=== PATIENT | female | born 1965 | race Caucasian/White ===

== ENCOUNTER 2020-03-19 16:59 | Emergency (ER) | payer MEDICARE, MEDICAID, SELFPAY ==
--- NOTE | ~2020-03-19 | XR_ITS ---
EXAMINATION: XR wrist LT min 3V DATE: 03/19/2020 17:30 INDICATION: Left wrist pain after fall, prior fracture TECHNIQUE: Posteroanterior, oblique, and lateral views of the left wrist were obtained. COMPARISON: None available FINDINGS: Osseous detail is obscured by cast material. There is a comminuted fracture of the distal r adius in near-anatomic alignment. An ulnar styloid avulsion is present. No definite new fracture is i dentified. The bones are osteopenic which limits sensitivity for fracture. IMPRESSION: 1. Casted fractures of the distal radius and ulnar styloid without definite evidence of new fracture. Reviewed, dictated and finalized at location A. IMPRESSION: 1. Casted fractures of the distal radius and ulnar styloid without definite desi dence of new fracture.
--- NOTE | ~2020-03-19 | XR_ITS ---
EXAMINATION: XR hand LT min 3V DATE: 03/19/2020 18:25 INDICATION: Left hand pain post fall TECHNIQUE: Posteroanterior, oblique and lateral views of the left hand were obtained. COMPARISON: Left wrist radiographs date at 5:30 PM FINDINGS: Casting material about the left hand, wrist and visualized forearm which obscures underlying fine bon e and soft tissue detail. Again seen is a healing nondisplaced metaphyseal fracture of the distal lef t radius with surrounding callus formation. Also unchanged is a minimally displaced ulnar styloid avu lsion fracture. No new fractures identified. Minimal to mild polyarticular osteoarthritis with typica l distribution most prominent at the radial aspect of the carpus. Diffuse osteopenia. IMPRESSION: 1. Casted fractures of the distal left radius and ulnar styloid process with callus formation around the healing radial fracture. 2. No acute osseous abnormality although sensitivity for nondisplaced fracture is decreased by osteop enia and casting material. Reviewed, dictated and finalized at location A. IMPRESSION: 1. Casted fractures of the distal left radius and ulnar styloid process with ca llus formation around the healing radial fracture. 2. No acute osseous abnormality although sensitivity for nondisplaced fracture is decreased by osteopenia and casting material.
[2020-03-19 17:04] VITALS: BP 143/85; PULSE 60; RESP 16; TEMP 36.6; O2SAT 98
--- NOTE | 2020-03-19 17:22 | ED.UPPEXIN ---
HPI - Extremity Injury (Upper) General Chief Complaint: Extremity Injury, Upper <VAIBHAV Rios Last Filed: 03/19/20 19:06> Stated Complaint: Broken Left Arm <VAIBHAV Rios Last Filed: 03/19/20 19:06> Time Seen by Provider: 03/19/20 17:09 <VAIBHAV Rios Last Filed: 03/19/20 19:06> Source: patient <VAIBHAV Rios Last Filed: 03/19/20 19:06> Mode of arrival: ambulatory <VAIBHAV Rios Last Filed: 03/19/20 19:06> Limitations: no limitations <VAIBHAV Rios Last Filed: 03/19/20 19:06> History of Present Illness HPI narrative: This is a 55 year old female that presents to the ER for left arm injury 4 days ago. Reports she had a wrist fracture of this arm in the end of December. Reports she has been in a cast since. Reports 4 days ago she tripped over her cat re-injuring the wrist. Reports increasing pain in the wrist. Reports she has an appointment to see an orthopedic doctor in 4 days at [facility]. Reports she has run out of pain medication. Denies fever, erythema, or numbness. <VAIBHAV Rios Last Filed: 03/19/20 19:06> Related Data Allergies/Adverse Reactions: Allergies Allergy/AdvReac Type Severity Reaction Status Date / Time iohexol Allergy Anaphylaxis Verified 03/19/20 17:36 [From contrast - CT, X-RAY] shellfish derived Allergy Itching Verified 03/19/20 17:36 <VAIBHAV Rios Last Filed: 03/19/20 19:06> Review of Systems Review of Systems: Narrative: CONSTITUTIONAL: Denies fever MUSCULOSKELETAL: Reports joint pain, and myalgia. NEUROLOGIC: Denies numbness <VAIBHAV Rios Last Filed: 03/19/20 19:06> All systems reviewed & are unremarkable except as noted in HPI and below <VAIBHAV Rios Last Filed: 03/19/20 19:06> [facility] Past Medical History Medical History: Medical History (Updated 03/19/20 @ 19:05 by Pooja Ferrell PA-C) History of hypertension <Pooja Ferrell PA-C - Last Filed: 03/19/20 19:06> Social History Social History: Social History (Updated 03/19/20 @ 17:30 by Pooja Ferrell PA-C) Smoking status: Current every day smoker <Pooja Ferrell PA-C - Last Filed: 03/19/20 19:06> Exam Narrative: Exam Narrative: GENERAL: Well-appearing, well-nourished, and in no acute distress. HEAD: Normocephalic, atraumatic. EYES: EOMI. EXTREMITIES: Left wrist with cast in place. No edema or erythema of the fingers of the left hand. Normal sensation. Normal capillary refill SKIN: Warm, dry, no rash. NEURO: No focal deficits. Alert and oriented x3. PSYCH: Normal mood and affect <Pooja Ferrell PA-C - Last Filed: 03/19/20 19:06> Course Vital Signs Vital signs: Vital Signs Temperature 36.6 C 03/19/20 17:04 Pulse Rate 60 03/19/20 17:04 Respiratory Rate 16 03/19/20 17:04 Blood Pressure 143/85 H 03/19/20 17:04 Pulse Oximetry 98 03/19/20 17:04 Temperature 36.6 C 03/19/20 17:04 Pulse Rate 78 03/19/20 19:13 Respiratory Rate 16 03/19/20 19:13 Blood Pressure 138/75 03/19/20 19:13 Pulse Oximetry 100 03/19/20 19:13 <Pooja Ferrell PA-C - Last Filed: 03/19/20 19:06> Vital Signs Temperature 36.6 C 03/19/20 17:04 Pulse Rate 60 03/19/20 17:04 Respiratory Rate 16 03/19/20 17:04 Blood Pressure 143/85 H 03/19/20 17:04 Pulse Oximetry 98 03/19/20 17:04 Temperature 36.6 C 03/19/20 17:04 Pulse Rate 78 03/19/20 19:13 Respiratory Rate 16 03/19/20 19:13 Blood Pressure 138/75 03/19/20 19:13 Pulse Oximetry 100 03/19/20 19:13 <Mireille Clinton MD - Last Filed: 03/19/20 19:58> MDM - Extremity Injury (Upper) MDM Narrative Medical decision making narrative: Patient presents to the emergency department for left wrist pain. Had a fracture in this area about 6 weeks ago and was casted by an orthopedic doctor in [place]. Recently moved here and has an appointment to see an orthopedic
[2020-03-19 19:13] VITALS: BP 138/75; PULSE 78; RESP 16; O2SAT 100
== END 2020-03-19 19:14 | disposition home or self-care (01) ==
PROVIDERS: Emergency Provider Emergency Medicine
DX: M25.532 Pain in left wrist (principal); S52.512D Displaced fracture of left radial styloid process, subsequent encounter for closed fracture with routine healing; S52.612D Displaced fracture of left ulna styloid process, subsequent encounter for closed fracture with routine healing; X58.XXXD Exposure to other specified factors, subsequent encounter; I10 Essential (primary) hypertension; F17.200 Nicotine dependence, unspecified, uncomplicated
CPT/HCPCS: 73110; 73130; 99283; A9270

== ENCOUNTER 2020-05-01 16:46 | Emergency (ER) | payer MEDICARE, MEDICAID, SELFPAY ==
--- NOTE | ~2020-05-01 | CT_ITS ---
EXAMINATION: CT lumbar spine wo con DATE: 05/01/2020 18:13 INDICATION: Low back pain after stepping off a porch and twisting her back. TECHNIQUE: Computed tomography (CT) of the lumbar spine was performed without intravenous contrast. A utomated exposure control and iterative reconstruction technique were employed. The dose-length produ ct was 347.14 mGy-cm. COMPARISON: None FINDINGS: Alignment is normal. Mild depression of the left anterior aspect of the superior endplate of L1 with subtle underlying linear sclerosis consistent with relatively recent mild compression fracture. Chron ic appearing minimal anterior wedging at T12 which may be physiologic. Disc heights are normal. There are disc bulges resulting in mild central canal stenosis at L2-L3 through L5-S1. Mild to moderate bi lateral facet osteoarthritis at L5-S1 with mild facet osteoarthritis in the more cephalad lumbar and lower thoracic spine. 1-2 mm nonobstructing stone at the upper pole of the right kidney. IMPRESSION: 1. Relatively acute appearing T12 compression fracture with mild depression of a portion of the super ior endplate. 2. Nonobstructing 1-2 mm right renal stone. Reviewed, dictated and finalized at location A. IMPRESSION: 1. Relatively acute appearing T12 compression fracture with mild depression of a portion of the superior endplate. 2. Nonobstructing 1-2 mm right renal stone.
--- NOTE | ~2020-05-01 | XR_ITS ---
EXAMINATION: XR hip BI 2V w AP pelvis DATE: 05/01/2020 18:31 INDICATION: Bilateral hip pain, right greater than left. TECHNIQUE: Anteroposterior view of the pelvis and anteroposterior and frog-leg lateral views of the l eft hip and anteroposterior and frog-leg lateral views of the right hip and were obtained. COMPARISON: None. FINDINGS: Alignment is normal. No fracture or suspected avascular necrosis. Bilateral hip and sacroiliac joint spaces are normal. Surgical clips project over the right abdomen. Likely pain management device proje cting over the right pelvis with leads extending cephalad towards the thoracic spine. Large phlebolit h versus heterotopic ossicle projects over the central pelvis. IMPRESSION: 1. No acute osseous abnormality. Reviewed, dictated and finalized at location A.
[2020-05-01 16:57] VITALS: BP 144/83; PULSE 66; RESP 16; TEMP 36.8; O2SAT 98
[2020-05-01 17:38] LABS: Add Urine Microscopic? YES; Appearance Urine Clear (Clear); Bacteria Urine Trace /hpf; Bilirubin Urine Negative (Negative); Blood Urine 1+ (Negative); Color Urine Straw (Yellow); Glucose Urine UA Negative (Negative); Ketones Urine Negative (Negative); Leukocyte Esterase Ur 2+ LEU/UL (Negative); Mucus Urine Rare /lpf; Nitrate Urine Negative (Negative); Protein Urine Negative (Negative); RBC Urine 0-2 /hpf (0-2); Specific Grav Ur 1.009 (1.001-1.035); Squamous Epithelial Cell Urine Few /hpf (Few); Urobilinogen Urine Negative mg/dL (<2.0)
--- NOTE | 2020-05-01 17:40 | ED.BACK ---
HPI - Back Pain/Injury General Chief Complaint: Back Pain/Injury Stated Complaint: Back Injury Time Seen by Provider: 05/01/20 17:14 Source: patient Mode of arrival: ambulatory Limitations: no limitations History of Present Illness HPI Narrative: This is a 55-year-old female that presents the emergency department for low back pain after an injury 4 days ago. Reports she was stepping down off of her porch and her back twisted. Reports since she has had bilateral low back pain. She has been taking ibuprofen with little relief. Denies fever, numbness, saddle anesthesia or bowel incontinence. Related Data Allergies Allergy/AdvReac Type Severity Reaction Status Date / Time iohexol Allergy Anaphylaxis Verified 05/01/20 17:00 [From contrast - CT, X-RAY] shellfish derived Allergy Itching Verified 05/01/20 17:00 Review of Systems Review of Systems: Narrative: CONSTITUTIONAL: Denies fever GENITOURINARY: Denies dysuria or hematuria. SKIN: Denies rash MUSCULOSKELETAL: Reports back pain, joint pain, and myalgia. NEUROLOGIC: Denies numbness, or weakness. All systems reviewed & are unremarkable except as noted in HPI and below PMFSH Past Medical History Medical History (Updated 05/01/20 @ 19:33 by Pooja Ferrell PA-C) History of fibromyalgia History of gastroesophageal reflux (GERD) History of hypertension Social History Social History (Updated 03/19/20 @ 17:30 by Pooja Ferrell PA-C) Smoking status: Current every day smoker Exam Narrative: Exam Narrative: GENERAL: Well-appearing, well-nourished, and in no acute distress. HEAD: Normocephalic, atraumatic. EYES: EOMI. CHEST: Clear to auscultation. No respiratory distress. No wheezes rales or rhonchi HEART: Regular rate and rhythm. No murmur heard. Normal peripheral pulses. BACK: No midline spinal tenderness EXTREMITIES: Normal range of motion. No edema. Strength equal in bilateral lower extremities (5/5). Normal patellar reflexes bilaterally SKIN: Warm, dry, no rash. NEURO: No focal deficits. Alert and oriented x3. PSYCH: Normal mood and affect Course Vital Signs Vital signs: Vital Signs Temperature 98.3 F 05/01/20 16:57 Pulse Rate 66 05/01/20 16:57 Respiratory Rate 16 05/01/20 16:57 Blood Pressure 144/83 H 05/01/20 16:57 Pulse Oximetry 98 05/01/20 16:57 Temperature 98.3 F 05/01/20 16:57 Pulse Rate 66 05/01/20 16:57 Respiratory Rate 16 05/01/20 16:57 Blood Pressure 144/83 H 05/01/20 16:57 Pulse Oximetry 98 05/01/20 16:57 MDM - Back Pain/Injury MDM Narrative Medical decision making narrative: Patient presents to the emergency department for low back pain after a possible injury a couple of days ago. She is neurologically intact. Hip/pelvis x-rays without acute findings. CT scan lumbar spine shows relatively acute appearing L1 compression fracture with mild depression of a portion of the superior endplate. Patient updated on case findings. She will be given [facility] pain management for follow-up. Patient is stable and felt appropriate for further outpatient evaluation. She was given warnings to return to the ER Lab Data Labs: Lab Results 05/01/20 Range/Units 17:04 Urine Color Straw (Yellow) Urine Appearance Clear (Clear) Urine pH 6.0 (5.0-9.0) Ur Specific [place] 1.009 (1.001-1.035) Urine Protein Negative (Negative) mg/dL Urine Glucose (UA) Negative (Negative) mg/dL Urine Ketones Negative (Negative) mg/dL Ur Blood (Man) 1+ H (Negative) Urine Nitrate Negative (Negative) Urine Bilirubin Negative (Negative) Urine Urobilinogen Negative (<2.0) mg/dL Leukocyte Esterase Rfl 2+ H (Negative) JAVI/UL Urine RBC 0-2 (0-2) /hpf Urine WBC 10-15 H /hpf Ur Squamous Epith Cells Few (Few) /hpf Urine Bacteria Trace /hpf Urine Mucus Rare /lpf Imaging Data Radiologist's impression: ITS Impressions Lumbar Spine CT 05/01/20 18:26 IMPRESSION: 1. Relatively acu
[2020-05-01] MEDS: diazePAM INJ (*CRX) 10 MG/2 ML SYRINGE 5 MG IM (17:58)
[2020-05-01] MEDS: ACETAMINOPHEN 500 MG TABLET 1000 MG PO (17:58)
--- NOTE | 2020-05-01 18:07 | PC.NURSE ---
PT TO RADIOLOGY AT THIS TIME IN W/C.
[2020-05-01] MEDS: HYDROcodone/acetaminophen (*CRX) 5-325 MG TABLET 1 TAB PO (18:50)
[2020-05-01 19:46] VITALS: BP 138/75; PULSE 86; RESP 16; O2SAT 100
== END 2020-05-01 19:47 | disposition home or self-care (01) ==
PROVIDERS: Emergency Provider Emergency Medicine
DX: S32.010A Wedge compression fracture of first lumbar vertebra, initial encounter for closed fracture (principal); M79.7 Fibromyalgia; K21.9 Gastro-esophageal reflux disease without esophagitis; I10 Essential (primary) hypertension; F17.200 Nicotine dependence, unspecified, uncomplicated; N20.0 Calculus of kidney; X50.9XXA Other and unspecified overexertion or strenuous movements or postures, initial encounter
CPT/HCPCS: 72131; 73521; 81001; 87086; 87088; 96372; 99284; A9270; J3360

== ENCOUNTER 2020-05-02 13:13 | Emergency (ER) | payer MEDICARE, MEDICAID, SELFPAY ==
[2020-05-02 13:15] VITALS: BP 155/77; PULSE 61; RESP 18; TEMP 36.5; O2SAT 100
--- NOTE | 2020-05-02 13:49 | ED.BACK ---
HPI - Back Pain/Injury General Chief Complaint: Back Pain/Injury Stated Complaint: Back Pain, Seen Last Night Time Seen by Provider: 05/02/20 13:24 Source: patient Mode of arrival: ambulatory Limitations: no limitations History of Present Illness HPI Narrative: Patient is a 55-year-old female who presents to emergency department for evaluation of low back pain diagnosed with compression fracture after miss stepping last night in the emergency department patient was placed on hydrocodone and ibuprofen and is noting that the ibuprofen and the narcotic are upsetting her stomach and causing her to feel slightly dizzy patient also notes increasing pain to the lower back. Patient has follow-up with pain management early next week. Patient denies other injuries or complaints and is otherwise in no distress and does not appear uncomfortable on arrival Related Data Allergies Allergy/AdvReac Type Severity Reaction Status Date / Time iohexol Allergy Anaphylaxis Verified 05/02/20 13:15 [From contrast - CT, X-RAY] shellfish derived Allergy Itching Verified 05/02/20 13:15 Review of Systems Review of Systems: All systems reviewed & are unremarkable except as noted in HPI and below PMFSH Past Medical History Medical History History of fibromyalgia History of gastroesophageal reflux (GERD) History of hypertension Social History Social History Smoking status: Current every day smoker Gender identity (if verbalized by the patient): Female Exam Narrative: Exam Narrative: GENERAL: Well-appearing, well-nourished, and in no acute distress. HEAD: Normocephalic, atraumatic. EYES: PERRLA and EOMI. ENT: Nares clear, no rhinorrhea or epistaxis. Mucous membranes moist. CHEST: Clear to auscultation. No respiratory distress. No wheezes rales or rhonchi HEART: Regular rate and rhythm. No murmur heard. Normal peripheral pulses. ABDOMEN: Soft, nontender, nondistended EXTREMITIES: Normal range of motion. No edema. Midline lumbar tenderness SKIN: Warm, dry, no rash. NEURO: No focal deficits. Alert and oriented x3. Cranial nerves II through XII grossly intact PSYCH: Normal mood and affect. Course Course Emergency Course: Patient in the room in no distress does not appear uncomfortable will have her medications changed advised to continue her follow-up with pain management Vital Signs Vital signs: Vital Signs Temperature 97.7 F 05/02/20 13:15 Pulse Rate 61 05/02/20 13:15 Respiratory Rate 18 05/02/20 13:15 Blood Pressure 155/77 H 05/02/20 13:15 Pulse Oximetry 100 05/02/20 13:15 Temperature 97.7 F 05/02/20 13:15 Pulse Rate 61 05/02/20 13:15 Respiratory Rate 18 05/02/20 13:15 Blood Pressure 155/77 H 05/02/20 13:15 Pulse Oximetry 100 05/02/20 13:15 MDM - Back Pain/Injury MDM Narrative Medical decision making narrative: Patients pain is positional in nature and localized to back without signs of cord compression or cauda equina based on neurological exam, skeletal exam and history. No fever or other significant factors to suggest osteomyelitis or spinal epidural abscess. No symptoms or signs to suggest pain is referred from abdominal or / cardiopulmonary sources. No pulsatile masses noted on exam. Patient ambulates with steady gait and is stable for outpatient management given case findings. Discharge Plan Discharge Clinical Impression: Closed compression fracture of lumbosacral spine Patient Disposition: Home, Self-Care Condition: Stable Instructions: Antibiotic Form, Vertebral Compression Fracture (ED) Additional Instructions: Medications as needed and prescribed. Limit lifting and bending. You may apply heat or cold to the area as needed. Follow up with your doctor for further care as planned. contact your doctor or return to the emergency department if you develop
[2020-05-02] MEDS: FAMOTIDINE 20 MG TABLET PO (13:56)
--- NOTE | 2020-05-02 14:01 | PC.NURSE ---
Pt refused Tylenol pills for pain. Informed BRINA Cheney of this.
[2020-05-02] MEDS: LIDOCAINE 5% PATCH 1 PATCH TRANSDERM (14:25)
== END 2020-05-02 15:10 | disposition home or self-care (01) ==
PROVIDERS: Emergency Provider Emergency Medicine
DX: S32.008D Other fracture of unspecified lumbar vertebra, subsequent encounter for fracture with routine healing (principal); M79.7 Fibromyalgia; K21.9 Gastro-esophageal reflux disease without esophagitis; I10 Essential (primary) hypertension; F17.200 Nicotine dependence, unspecified, uncomplicated; W10.1XXD Fall (on)(from) sidewalk curb, subsequent encounter
CPT/HCPCS: 99283; A9270

== ENCOUNTER 2020-05-06 11:10 | Emergency (ER) | payer MEDICARE, MEDICAID, SELFPAY ==
[2020-05-06 11:19] VITALS: BP 143/94; PULSE 65; RESP 18; TEMP 36.3; O2SAT 100
[2020-05-06 11:24] VITALS: BP 143/94; PULSE 65; RESP 18; TEMP 36.3; O2SAT 100
--- NOTE | 2020-05-06 12:04 | ED.BACK ---
HPI - Back Pain/Injury General Chief Complaint: Unspecified <VAIBHAV Blake Last Filed: 05/06/20 13:04> Stated Complaint: REQUESTING PAIN MEDICATION <VAIBHAV Blake Last Filed: 05/06/20 13:04> Time Seen by Provider: 05/06/20 11:16 <VAIBHAV Blake Last Filed: 05/06/20 13:04> Source: patient <VAIBHAV Blake Last Filed: 05/06/20 13:04> Mode of arrival: ambulatory <VAIBHAV Blake Last Filed: 05/06/20 13:04> Limitations: no limitations <VAIBHAV Blake Last Filed: 05/06/20 13:04> History of Present Illness HPI Narrative: Patient is a 55-year-old female who presents to emergency department for evaluation of continued pain secondary to compression fracture of the lumbar spine diagnosed over a week ago patient went to pain management clinic today and was evaluated and presents to emergency department for continued pain noting she is out of her medications that she has been taking for pain has not follow with primary care denies new injury or trauma denies illness or other complaints and is otherwise in no distress upon arrival does not appear uncomfortable. <VAIBHAV Blake Last Filed: 05/06/20 13:04> Related Data Home Medications: Home Medications Medication Instructions Recorded Confirmed albuterol sulfate INHALATION 05/06/20 amlodipine 05/06/20 gabapentin 05/06/20 hydroxyzine HCl 05/06/20 lisinopril 05/06/20 propranolol 05/06/20 tiotropium bromide [Spiriva with INHALATION 05/06/20 HandiHaler] trazodone 05/06/20 <VAIBHAV Blake Last Filed: 05/06/20 13:04> Allergies/Adverse Reactions: Allergies Allergy/AdvReac Type Severity Reaction Status Date / Time iohexol Allergy Anaphylaxis Verified 05/06/20 11:29 [From contrast - CT, X-RAY] shellfish derived Allergy Itching Verified 05/06/20 11:29 <VAIBHAV Blake Last Filed: 05/06/20 13:04> Review of Systems Review of Systems: All systems reviewed & are unremarkable except as noted in HPI and below <Amado Cheney PA-C - Last Filed: 05/06/20 13:04> [facility] Social History Social History: Social History Smoking status: Current every day smoker Gender identity (if verbalized by the patient): Female Sexual Orientation (if Verbalized by the Patient): Straight or Heterosexual <Amado Cheney PA-C - Last Filed: 05/06/20 13:04> Exam Narrative: Exam Narrative: GENERAL: Well-appearing, well-nourished, and in no acute distress. HEAD: Normocephalic, atraumatic. EYES: PERRLA and EOMI. ENT: Nares clear, no rhinorrhea or epistaxis. Mucous membranes moist. Oropharynx without tonsillar hypertrophy exudate or other lesions. NECK: Supple. No adenopathy or masses. CHEST: Clear to auscultation. No respiratory distress. No wheezes rales or rhonchi HEART: Regular rate and rhythm. No murmur heard. EXTREMITIES: Normal range of motion. No edema. Lumbar tenderness no deformity noted SKIN: Warm, dry, no rash. NEURO: No focal deficits. Alert and oriented x3. Motor and sensory intact and symmetrical in the extremities. Cranial nerves II through XII grossly intact PSYCH: Normal mood and affect. <VAIBHAV Blake Last Filed: 05/06/20 13:04> Course Course Emergency Course: Patient in the room in no distress will be medicated and sent home <VAIBHAV Blake Last Filed: 05/06/20 13:04> Vital Signs Vital signs: Vital Signs Temperature 36.3 C L 05/06/20 11:19 Pulse Rate 65 05/06/20 11:19 Respiratory Rate 18 05/06/20 11:19 Blood Pressure 143/94 H 05/06/20 11:19 Pulse Oximetry 100 05/06/20 11:19 Temperature 36.3 C L 05/06/20 11:24 Pulse Rate 66 05/06/20 13:24 Respiratory Rate 18 05/06/20 13:24 Blood Pressure 139/50 L 05/06/20 13:24 Pulse Oximetry 91 05/06/20 13:24 <VAIBHAV Blake
[2020-05-06] MEDS: LIDOCAINE 5% PATCH 1 PATCH TRANSDERM (12:12)
[2020-05-06] MEDS: KETOROLAC 15 MG/ML VIAL (*BKC) IM (12:28)
[2020-05-06 12:38] LABS: Add Urine Microscopic? YES; Appearance Urine Clear (Clear); Bacteria Urine Trace /hpf; Bilirubin Urine Negative (Negative); Blood Urine 2+ (Negative); Color Urine Yellow (Yellow); Glucose Urine UA Negative (Negative); Ketones Urine Negative (Negative); Leukocyte Esterase Ur 3+ LEU/UL (Negative); Nitrate Urine Negative (Negative); Protein Urine Negative (Negative); Specific Grav Ur 1.012 (1.001-1.035); Squamous Epithelial Cell Urine Few /hpf (Few); Urobilinogen Urine Negative mg/dL (<2.0); WBC Urine 31-50 /hpf
--- NOTE | 2020-05-06 13:23 | PC.NURSE ---
abdominal binder applied per erp ashlee orders. ERP notified and approved at this time.
[2020-05-06 13:24] VITALS: BP 139/50; PULSE 66; RESP 18; O2SAT 91
== END 2020-05-06 13:26 | disposition home or self-care (01) ==
PROVIDERS: Emergency Medicine Emergency Medical Services; Emergency Provider Emergency Medicine
DX: N39.0 Urinary tract infection, site not specified (principal); M54.5 Low back pain; F17.210 Nicotine dependence, cigarettes, uncomplicated
CPT/HCPCS: 81001; 87086; 96372; 99283; A9270; J1885

== ENCOUNTER 2020-05-22 11:26 | Emergency (ER) | payer MEDICARE, MEDICAID, SELFPAY ==
--- NOTE | ~2020-05-22 | CT_ITS ---
EXAMINATION: CT cervical spine wo con DATE: 05/22/2020 11:59 INDICATION: Neck pain TECHNIQUE: Computed tomography (CT) of the cervical spine was performed without intravenous contrast. Automated exposure control and iterative reconstruction technique were employed. The dose-length pro duct was 259.33 mGy-cm. COMPARISON: None FINDINGS: Draining of the normal cervical lordosis. Vertebral body heights are normal. Mild disc height loss at C6-C7 and minimal disc height loss at C3-C4 and C4-C5. Minimal to mild uncovertebral osteoarthritis at each of these levels. There is also multilevel mild bilateral facet osteoarthritis throughout the cervical spine. No significant central canal or neural foraminal stenosis. Small amount of atheroscle rotic calcification at the bilateral carotid bulbs. Cervical soft tissues are otherwise unremarkable. Small peripheral bleb at the right apex. IMPRESSION: 1. Minimal to mild cervical spondylosis. No acute osseous abnormality. Reviewed, dictated and finalized at location A.
--- NOTE | ~2020-05-22 | CT_ITS ---
EXAMINATION: CT abdomen pelvis wo con DATE: 05/22/2020 13:08 INDICATION: Back pain. Hematuria. TECHNIQUE: Computed tomography (CT) of the abdomen and pelvis was performed without intravenous contr ast. The dose-length product was 384.64 mGy-cm. Automated exposure control and iterative reconstructi on technique were employed. COMPARISON: None. FINDINGS: Dependent atelectasis. Heart size normal. No significant pleural or pericardial effusion. T here are spinal stimulator leads within the lower thoracic spine. There are surgical clips in the rig ht anterior abdominal wall. Status post cholecystectomy. The liver, spleen, pancreas, adrenal glands and left kidney are unremark able. There is a 2 mm nonobstructing right renal stone. No ureteral stones or hydronephrosis. Colonic diverticulosis without evidence for diverticulitis. No abnormal pelvic masses or fluid collections. Status post hysterectomy. Mild lumbar spondylosis. There is a mild superior endplate compression frac ture of L1 with increasing sclerosis compared with CT lumbar spine dated 05/01/2020.. IMPRESSION: 1. Nonobstructing right renal stone measuring 2 mm. 2: Mild L1 superior endplate compression fracture, likely acute/subacute, with increasing sclerosis c ompared with prior lumbar spine CT dated 05/01/2020. Reviewed, dictated and finalized at location B. IMPRESSION: 1. Nonobstructing right renal stone measuring 2 mm. 2: Mild L1 superior endplate compression fracture, likely acute/subacute, with increasing sclerosis compared with prior lumbar spine CT dated 05/01/2020.
[2020-05-22 11:35] VITALS: BP 139/88; PULSE 77; RESP 16; TEMP 37; O2SAT 100
--- NOTE | 2020-05-22 12:06 | ED.BACK ---
HPI - Back Pain/Injury General Chief Complaint: Back Pain/Injury Stated Complaint: back pain/muscle spasms Time Seen by Provider: 05/22/20 11:31 Source: patient Mode of arrival: ambulatory Limitations: no limitations History of Present Illness HPI Narrative: This is a 55 year old female that presents to the ER for low back pain. Reports she was recently diagnosed with a compression fracture. She is out of her pain medication. Reports today she also started to have neck pain. No new injuries or trauma. Reports history of chronic pain and that she used to see pain management where she lived before. She is seeing pain management here, but her appointment was moved to Tuesday of next week. Denies fever, abdominal pain, vomiting, dysuria, hematuria, saddle anesthesia, or bowel/bladder incontinence. Related Data Home Medications Medication Instructions Recorded Confirmed albuterol sulfate INHALATION 05/06/20 amlodipine 05/06/20 gabapentin 05/06/20 hydroxyzine HCl 05/06/20 lisinopril 05/06/20 propranolol 05/06/20 tiotropium bromide [Spiriva with INHALATION 05/06/20 HandiHaler] trazodone 05/06/20 Allergies Allergy/AdvReac Type Severity Reaction Status Date / Time iohexol Allergy Anaphylaxis Verified 05/06/20 11:29 [From contrast - CT, X-RAY] shellfish derived Allergy Itching Verified 05/06/20 11:29 Review of Systems Review of Systems: Narrative: CONSTITUTIONAL: Denies fever GASTROINTESTINAL: Denies abdominal pain, nausea, vomiting GENITOURINARY: Denies dysuria or hematuria. SKIN: Denies rash MUSCULOSKELETAL: Reports back pain, joint pain, and myalgia. NEUROLOGIC: Denies numbness, or weakness. All systems reviewed & are unremarkable except as noted in HPI and below PMFSH Past Medical History Medical History (Updated 05/22/20 @ 16:31 by Pooja Ferrell PA-C) History of fibromyalgia History of gastroesophageal reflux (GERD) History of hypertension Social History Social History Smoking status: Current every day smoker Gender identity (if verbalized by the patient): Female Exam Narrative: Exam Narrative: GENERAL: Well-appearing, well-nourished, and in no acute distress. HEAD: Normocephalic, atraumatic. EYES: EOMI. NECK: Supple. No adenopathy or masses. No midline spinal tenderness CHEST: Clear to auscultation. No respiratory distress. No wheezes rales or rhonchi HEART: Regular rate and rhythm. No murmur heard. Normal peripheral pulses. ABDOMEN: Soft, nontender, nondistended, normal active bowel sounds. No CVA tenderness EXTREMITIES: Normal range of motion. No edema. Strength equal in bilateral upper and lower extremities (5/5) SKIN: Warm, dry, no rash. NEURO: No focal deficits. Alert and oriented x3. CN II-XII grossly intact PSYCH: Normal mood and affect Course Vital Signs Vital signs: Vital Signs Temperature 98.6 F 05/22/20 11:35 Pulse Rate 77 05/22/20 11:35 Respiratory Rate 16 05/22/20 11:35 Blood Pressure 139/88 05/22/20 11:35 Pulse Oximetry 100 05/22/20 11:35 Temperature 98.6 F 05/22/20 11:35 Pulse Rate 60 05/22/20 16:12 Respiratory Rate 15 05/22/20 16:12 Blood Pressure 131/80 05/22/20 16:12 Pulse Oximetry 96 05/22/20 16:12 MDM - Back Pain/Injury MDM Narrative Medical decision making narrative: Patient presents to the ER for neck pain and low back pain. No new injuries or trauma. Patient is neurologically intact. Reports chronic pain and sees pain management for this. Reports she had run out of her pain medication. I did see patient recently for an acute L1 compression fracture. CBC and metabolic panel without concerning findings. UA with possible urinary tract infection. This will go for culture. Patient will be started on oral antibiotics. CT scan of the cervical spine is without acute osseous abnormalities. CT scan of the abdomen and pelvis once again shows L1 superior endpl
[2020-05-22 12:20] LABS: Basophils Absolute Auto 0.1 K/mm3 (0.0-0.1); Basophils Percent Auto 0.6 % (0.2-1.2); Eosinophils Absolute Auto 0.2 K/mm3 (0-0.3); Eosinophils Percent Auto 2.5 % (0-4.4); Hematocrit 45.3 % (37.0-47.0); Hemoglobin 14.9 g/dL (12.0-15.0); Immature Granulocyte Absolute 0.02 K/mm3 (0.00-0.031); Immature Granulocyte Percent A 0.2 % (0-0.5); Lymphocytes Absolute Auto 2.42 K/mm3 (0.9-3.2); Mean Corpuscular HGB Conc 32.9 g/dl (32-36); Mean Corpuscular Hemoglobin 30.2 pg (26-34); Mean Corpuscular Volume 91.9 fl (80-100); Mean Platelet Volume 9.7 fl (7.4-10.4); Monocytes Absolute Auto 0.7 K/mm3 (0.1-0.6); Monocytes Percent Auto 7.5 % (2.6-8.5); Neutrophils Absolute Auto 5.3 K/mm3 (1.3-6.7); Neutrophils Percent Auto 61.2 % (45.5-73.1); Platelet Count Result 218 k/mm3 (150-375); Red Blood Count 4.93 M/mm3 (4.2-5.4); Red Cell Distribution Width 13.2 % (11.5-14.5); White Blood Count 8.6 K/mm3 (4.5-10.0)
[2020-05-22] MEDS: diazePAM INJ (*CRX) 10 MG/2 ML SYRINGE 5 MG IV PUSH (12:25)
[2020-05-22 12:33] LABS: Anion Gap 11 mmol/L (8-16); Blood Urea Nitrogen 12 mg/dL (7-17); Calcium 9.9 mg/dL (8.4-10.2); Carbon Dioxide 26 mmol/L (22-30); Chloride 105 mmol/L (98-107); Estimated CRCL calculation 79 ml/min; Estimated Glomerular Filt Rate > 60; Glucose 119 mg/dL (65-105); Potassium 4.4 mmol/L (3.4-5.0); Sodium 142 mmol/L (137-145)
[2020-05-22 12:41] LABS: Add Urine Microscopic? YES; Appearance Urine Cloudy (Clear); Bacteria Urine Trace /hpf; Bilirubin Urine Negative (Negative); Blood Urine 3+ (Negative); Color Urine Yellow (Yellow); Glucose Urine UA Negative (Negative); Ketones Urine Negative (Negative); Leukocyte Esterase Ur 3+ LEU/UL (Negative); Mucus Urine Rare /lpf; Nitrate Urine Negative (Negative); Protein Urine Negative (Negative); RBC Urine 21-50 /hpf (0-2); Specific Grav Ur 1.016 (1.001-1.035); Squamous Epithelial Cell Urine Few /hpf (Few); Urobilinogen Urine Negative mg/dL (<2.0); WBC Urine >75 /hpf
[2020-05-22] MEDS: ONDANSETRON INJ 4 MG/2 ML VIAL IV PUSH (13:14)
[2020-05-22] MEDS: MORPHINE SULFATE (*CRX) 4 MG/ML INJ IV PUSH (13:14)
[2020-05-22 13:16] VITALS: BP 126/65; PULSE 64; RESP 18; O2SAT 96
[2020-05-22 13:54] VITALS: BP 131/80; PULSE 66; RESP 20; O2SAT 100
--- NOTE | 2020-05-22 14:17 | PC.NURSE ---
Pt using call light multiple times to state Im still having pain, I need more meds. EDP aware.
--- NOTE | 2020-05-22 16:04 | PC.NURSE ---
Pt up to station requesting more pain medication for her severe pain. Pt walking with a steady gait to and from her room. Pt also got herself dressed.
[2020-05-22 16:12] VITALS: BP 131/80; PULSE 60; RESP 15; O2SAT 96
[2020-05-22] MEDS: PANTOPRAZOLE SODIUM IV 40 MG VIAL IV PUSH (16:12)
[2020-05-22 16:15] LABS: Alanine Aminotransferase 26 U/L (4-35); Albumin Level 4.4 g/dL (3.5-5.1); Alkaline Phosphatase 131 U/L (38-126); Aspartate Amino Transferase 53 U/L (14-36); Bilirubin,Total 0.2 mg/dL (0.2-1.3); Lipase 59 U/L (23-300)
[2020-05-22 16:59] VITALS: BP 115/100; PULSE 78; RESP 15; O2SAT 98
== END 2020-05-22 17:01 | disposition home or self-care (01) ==
PROVIDERS: Physician Assistant; Emergency Provider Emergency Medicine; PCP Family Medicine
DX: M54.2 Cervicalgia (principal); S32.010D Wedge compression fracture of first lumbar vertebra, subsequent encounter for fracture with routine healing; M79.7 Fibromyalgia; K21.9 Gastro-esophageal reflux disease without esophagitis; I10 Essential (primary) hypertension; F17.200 Nicotine dependence, unspecified, uncomplicated; M47.812 Spondylosis without myelopathy or radiculopathy, cervical region; N20.0 Calculus of kidney; G89.29 Other chronic pain; X58.XXXD Exposure to other specified factors, subsequent encounter
CPT/HCPCS: 36415; 72125; 74176; 80048; 80076; 81001; 83690; 85025; 87086; 96365; 96375; 99284; C9113; J0131; J2270; J2405; J3360

== ENCOUNTER 2020-05-31 14:05 | Emergency (ER) | payer MEDICARE, MEDICAID, SELFPAY ==
[2020-05-31 14:17] VITALS: BP 135/96; PULSE 66; RESP 12; TEMP 36.2; O2SAT 99
[2020-05-31 14:33] LABS: Basophils Absolute Auto 0.1 K/mm3 (0.0-0.1); Basophils Percent Auto 0.7 % (0.2-1.2); Eosinophils Absolute Auto 0.3 K/mm3 (0-0.3); Eosinophils Percent Auto 2.8 % (0-4.4); Hematocrit 44.6 % (37.0-47.0); Hemoglobin 14.8 g/dL (12.0-15.0); Immature Granulocyte Absolute 0.03 K/mm3 (0.00-0.031); Immature Granulocyte Percent A 0.3 % (0-0.5); Lymphocytes Absolute Auto 4.33 K/mm3 (0.9-3.2); Lymphocytes Percent Auto 47.3 % (18.3-44.2); Mean Corpuscular HGB Conc 33.2 g/dl (32-36); Mean Corpuscular Hemoglobin 30.5 pg (26-34); Mean Platelet Volume 10.3 fl (7.4-10.4); Monocytes Absolute Auto 0.9 K/mm3 (0.1-0.6); Monocytes Percent Auto 10.3 % (2.6-8.5); Neutrophils Absolute Auto 3.5 K/mm3 (1.3-6.7); Neutrophils Percent Auto 38.6 % (45.5-73.1); Platelet Count Result 222 k/mm3 (150-375); Red Blood Count 4.85 M/mm3 (4.2-5.4); Red Cell Distribution Width 13.3 % (11.5-14.5); White Blood Count 9.2 K/mm3 (4.5-10.0)
[2020-05-31 14:44] LABS: Alanine Aminotransferase 26 U/L (4-35); Albumin Level 4.6 g/dL (3.5-5.1); Alkaline Phosphatase 125 U/L (38-126); Anion Gap 8 mmol/L (8-16); Aspartate Amino Transferase 37 U/L (14-36); Bilirubin,Total 0.5 mg/dL (0.2-1.3); Blood Urea Nitrogen 21 mg/dL (7-17); Calcium 10.1 mg/dL (8.4-10.2); Carbon Dioxide 29 mmol/L (22-30); Chloride 101 mmol/L (98-107); Estimated CRCL calculation 68 ml/min; Estimated Glomerular Filt Rate > 60; Glucose 87 mg/dL (65-105); Lipase 77 U/L (23-300); Potassium 4.6 mmol/L (3.4-5.0); Sodium 138 mmol/L (137-145)
[2020-05-31 14:49] LABS: Add Urine Microscopic? YES; Appearance Urine Cloudy (Clear); Bacteria Urine Trace /hpf; Bilirubin Urine 1+ (Negative); Blood Urine 2+ (Negative); Color Urine Yellow (Yellow); Glucose Urine UA Negative (Negative); Ketones Urine Trace mg/dL (Negative); Leukocyte Esterase Ur 3+ LEU/UL (Negative); Mucus Urine Rare /lpf; Nitrate Urine Negative (Negative); Protein Urine 1+ mg/dL (Negative); RBC Urine 21-50 /hpf (0-2); Specific Grav Ur 1.026 (1.001-1.035); Squamous Epithelial Cell Urine Moderate /hpf (Few); WBC Urine >75 /hpf
--- NOTE | 2020-05-31 15:01 | ED.ABDPAIN ---
HPI - Abdominal Pain General Chief Complaint: Abdominal Pain Stated Complaint: bladder problems Time Seen by Provider: 05/31/20 14:59 History of Present Illness HPI narrative: She has had hematuria, dysuria, and lower abdominal pain for quite some time. She has received multiple courses of antibiotics, which have not helped. She was seen at [facility] and had a urological procedure and was apparently told that she may need another one. She has a follow-up appointment at [facility] for this issue in the coming weeks, but she says that she cannot wait. Related Data Home Medications Medication Instructions Recorded Confirmed albuterol sulfate INHALATION 05/06/20 amlodipine 05/06/20 gabapentin 05/06/20 hydroxyzine HCl 05/06/20 lisinopril 05/06/20 propranolol 05/06/20 tiotropium bromide [Spiriva with INHALATION 05/06/20 HandiHaler] trazodone 05/06/20 Allergies Allergy/AdvReac Type Severity Reaction Status Date / Time iohexol Allergy Severe Anaphylaxis Verified 05/31/20 16:00 [From contrast - CT, X-RAY] shellfish derived Allergy Severe Itching Verified 05/31/20 16:00 Review of Systems Review of Systems: All systems reviewed & are unremarkable except as noted in HPI and below Constitutional: Constitutional: Denies fever(s) Cardiovascular: Cardiovascular: Denies chest pain Respiratory: Respiratory: Denies dyspnea Gastrointestinal: Gastrointestinal: Reports abdominal pain Genitourinary: Genitourinary: Reports hematuria, Reports nocturia and Reports dysuria Musculoskeletal: Musculoskeletal: Reports back pain Neurologic: Reports dizziness PMFSH Past Medical History Medical History History of fibromyalgia History of gastroesophageal reflux (GERD) History of hypertension Social History Social History Smoking status: Current every day smoker Gender identity (if verbalized by the patient): Female Exam Const: General: no acute distress, alert and ill appearing chronically Orientation/consciousness: patient oriented x3 HENMT: Head: normal to inspection Resp: Effort & Inspection: normal respiratory effort Auscultation: clear to auscultation bilaterally Cardio: Rate: regular rate Rhythm: regular rhythm GI: Inspection: non-distended GI Palp: Yes Soft to palpation, Yes Tenderness to palpation present (GI), No Guarding due to palpation present (GI) and No Palpable mass present Skin: General skin exam: normal color Neuro: General: patient oriented x3, moves all extremities and no focal motor deficits Speech: normal speech Gait exam (Neuro): Normal gait present Extrem: General: normal to inspection Course Vital Signs Vital signs: Vital Signs Temperature 36.2 C L 05/31/20 14:17 Pulse Rate 66 05/31/20 14:17 Respiratory Rate 12 05/31/20 14:17 Blood Pressure 135/96 H 05/31/20 14:17 Pulse Oximetry 99 05/31/20 14:17 Temperature 36.2 C L 05/31/20 14:17 Pulse Rate 88 05/31/20 16:26 Respiratory Rate 18 05/31/20 16:26 Blood Pressure 142/76 H 05/31/20 16:26 Pulse Oximetry 98 05/31/20 16:26 MDM - Abdominal Pain MDM Narrative Medical decision making narrative: Urine could indicate infection, she is already on antibiotics and previous cultures have been negative. Differential Diagnosis Differential diagnosis: Likely other (UTI, IC) Medical Records Attestation: I reviewed the patient's medical records. Lab Data Attestation: I reviewed the patient's lab results. Result diagrams: 05/31/20 14:26 05/31/20 14:26 Labs: Lab Results 05/31/20 05/31/20 05/31/20 Range/Units 14:26 14:26 14:35 WBC 9.2 (4.5-10.0) K/mm3 RBC 4.85 (4.2-5.4) M/mm3 Hgb 14.8 (12.0-15.0) g/dL Hct 44.6 (37.0-47.0) % MCV 92.0 (80-100) fl MCH 30.5 (26-34) pg MCHC 33.2 (32-36) g/dl RDW 13.3 (11.5-14.5) % Pl
[2020-05-31 16:26] VITALS: BP 142/76; PULSE 88; RESP 18; O2SAT 98
[2020-05-31] MEDS: PHENAZOPYRIDINE HCL 100 MG TABLET 200 MG PO (16:26)
[2020-05-31] MEDS: CEFDINIR 300 MG CAPSULE PO (16:26)
== END 2020-05-31 16:27 | disposition home or self-care (01) ==
PROVIDERS: Emergency Medicine; Emergency Provider Emergency Medicine; PCP Family Medicine
DX: R31.9 Hematuria, unspecified (principal); M79.7 Fibromyalgia; K21.9 Gastro-esophageal reflux disease without esophagitis; I10 Essential (primary) hypertension; F17.200 Nicotine dependence, unspecified, uncomplicated
CPT/HCPCS: 36415; 80053; 81001; 83690; 85025; 87086; 99283; A9270

== ENCOUNTER 2020-10-04 01:49 | Emergency (ER) | payer MEDICARE, MEDICAID, SELFPAY ==
--- NOTE | ~2020-10-04 | XR_ITS ---
EXAMINATION: XR ankle RT min 3V EXAM DATE: 10/04/2020 02:23 INDICATION: No known recent injury provided at this time. Pain of the right ankle. TECHNIQUE: Right ankle frontal, lateral and oblique projections obtained and reviewed. There is no p rior study for comparison. FINDINGS: The right ankle mortise appears intact. There is lateral malleolar nondisplaced avulsion, age indeterminate. Other evidence of sequela from old bilateral malleolar avulsion injuries. There is no subcutaneous gas. There is soft tissue swelling over the ankle anterolaterally. There are no ra diopaque foreign bodies. IMPRESSION: 1. Age-indeterminate lateral malleolar avulsion. 2. Soft tissue swelling. Reviewed, dictated and finalized at location A. IZATION COORDINATOR
[2020-10-04 01:54] VITALS: BP 114/69; PULSE 65; RESP 22; TEMP 36.6; O2SAT 95
[2020-10-04 04:00] VITALS: BP 110/81; PULSE 71; RESP 18; O2SAT 95
--- NOTE | 2020-10-04 06:19 | ED.GENADULT ---
HPI - General Adult General Chief complaint: Alcohol Stated complaint: ankle pain Time Seen by Provider: 10/04/20 01:51 History of Present Illness HPI narrative: Patient is a 55-year-old female who presents ER with right ankle pain. Patient was intoxicated with several other people at a parking lot. 1 was arrested, the other was sent to a psych facility, our patient was brought here. She reports that she was wandering through the [place] with these individuals when she tripped and twisted her ankle. She is able to bear weight but has pain over the lateral malleolus. No numbness or tingling. She did not strike her head or lose consciousness. Related Data Home Medications Medication Instructions Recorded Confirmed albuterol sulfate INHALATION 05/06/20 amlodipine 05/06/20 gabapentin 05/06/20 hydroxyzine HCl 05/06/20 lisinopril 05/06/20 propranolol 05/06/20 tiotropium bromide [Spiriva with INHALATION 05/06/20 HandiHaler] trazodone 05/06/20 Allergies Allergy/AdvReac Type Severity Reaction Status Date / Time iohexol Allergy Severe Anaphylaxis Verified 05/31/20 16:00 [From contrast - CT, X-RAY] shellfish derived Allergy Severe Itching Verified 05/31/20 16:00 Review of Systems Constitutional: Constitutional: Denies chills, Denies fever(s) and Denies weakness Musculoskeletal: Musculoskeletal: Denies back pain, Reports arthralgias and Denies joint swelling Neurologic: Denies focal weakness and Denies numbness PMFSH Past Medical History Medical History (Updated 10/04/20 @ 06:24 by Carlito Bartlett MD) History of fibromyalgia History of gastroesophageal reflux (GERD) History of hypertension Social History Social History Smoking status: Current every day smoker Gender identity (if verbalized by the patient): Female Exam Narrative: Exam Narrative: GENERAL: Intoxicated-appearing, well-nourished, and in no acute distress. HEAD: Normocephalic, atraumatic. CHEST: Clear to auscultation. No respiratory distress. HEART: Regular rate and rhythm. Normal peripheral pulses. EXTREMITIES: Normal range of motion. No edema. Tender to palpation over right lateral malleolus without bruising or swelling. SKIN: Warm, dry, no rash. NEURO: Alert and oriented x3. Course Course Emergency Course: At a fracture is where patient is having pain. Patient placed in a stirrup splint and given crutches. Follow-up with Ortho. Vital Signs Vital signs: Vital Signs Temperature 97.8 F 10/04/20 01:54 Pulse Rate 65 10/04/20 01:54 Respiratory Rate 22 H 10/04/20 01:54 Blood Pressure 114/69 10/04/20 01:54 Pulse Oximetry 95 10/04/20 01:54 Temperature 97.8 F 10/04/20 01:54 Pulse Rate 71 10/04/20 04:00 Respiratory Rate 18 10/04/20 04:00 Blood Pressure 110/81 10/04/20 04:00 Pulse Oximetry 95 10/04/20 04:00 Procedures Orthopedic Splinting/Casting Injury #1: Splinting/Casting Date: 10/04/20 Side: right Lower Extremity Injury Location: ankle Lower Extremity Immobilizer: stirrup splint Splint: customized in ED Pre-Procedure Neuro Vascular Exam: normal Post-Procedure Neuro Vascular Exam: normal Other Orthopedic Equipment: crutches Medical Decision Making Vital Signs Vital Signs: Vital Signs Temperature 97.8 F 10/04/20 01:54 Pulse Rate 65 10/04/20 01:54 Respiratory Rate 22 H 10/04/20 01:54 Blood Pressure 114/69 10/04/20 01:54 Pulse Oximetry 95 10/04/20 01:54 Temperature 97.8 F 10/04/20 01:54 Pulse Rate 71 10/04/20 04:00 Respiratory Rate 18 10/04/20 04:00 Blood Pressure 110/81 10/04/20 04:00 Pulse Oximetry 95 10/04/20 04:00 Imaging Data My impression: Right ankle: Age-indeterminate avulsion fracture of the lateral malleolus Discharge Plan Discharge Clinical Impression: Ankle fracture Patient Disposition: Home, Self-Care
[2020-10-04 07:00] VITALS: BP 120/82; PULSE 70; RESP 20; O2SAT 99
== END 2020-10-04 07:10 | disposition home or self-care (01) ==
PROVIDERS: Emergency Provider Emergency Medicine; PCP Family Medicine
DX: S82.891A Other fracture of right lower leg, initial encounter for closed fracture (principal); M79.7 Fibromyalgia; K21.9 Gastro-esophageal reflux disease without esophagitis; I10 Essential (primary) hypertension; F17.200 Nicotine dependence, unspecified, uncomplicated; W18.49XA Other slipping, tripping and stumbling without falling, initial encounter
CPT/HCPCS: 29515; 73610; 99284

== ENCOUNTER 2020-10-04 16:26 | Observation (INO) | payer MEDICARE, MEDICAID, SELFPAY ==
[2020-10-04] VITALS (7 sets, daily range): BP systolic 82–121; BP diastolic 46–96; PULSE 64–75; RESP 16–20; TEMP 36.6–36.8; O2SAT 90–99; BMI 28.8
--- NOTE | ~2020-10-04 | CT_ITS ---
EXAMINATION: CT brain wo con INDICATION: Altered mental status, headache COMPARISON: None TECHNIQUE: Standard unenhanced head CT. The dose-length product (DLP) was 605.33 mGy-cm. The mA was a djusted according to patient size. Iterative reconstruction technique was employed. FINDINGS: There is no intracranial hemorrhage, acute infarction, or abnormal mass lesion. 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 The ventricles are normal. There is no abnormal mass effect or midline shift. The arriaga-white matter differentiation is normal. The basal cisterns are patent. In tracranial calcified cerebral atherosclerosis is noted. The orbits are normal. There is mild mucosal thickening of the paranasal sinuses. IMPRESSION: 1. No acute intracranial abnormality. Reviewed, dictated and finalized at location A. SFILL TECHNICIAN
--- NOTE | ~2020-10-04 | XR_ITS ---
EXAMINATION: XR chest 2V EXAM DATE: 10/05/2020 08:56 INDICATION: Wheezing, productive cough. Asthma, COPD, hypertension. TECHNIQUE: Frontal and lateral projections of the chest obtained and reviewed. There is no prior renetta dy for comparison. FINDINGS: Small amount of left basilar atelectasis or pneumonia. There are no pleural effusions. The cardiomediastinal silhouette is within normal limits. There is no pneumothorax suspected. There are cholecystectomy clips. Spine stimulator leads. Other foreign bodies overlying patient. IMPRESSION: Left basilar subsegmental atelectasis or pneumonia. Reviewed, dictated and finalized at location A. NG COMPLIANCE AUDITOR
--- NOTE | 2020-10-04 16:34 | ECG_ITS ---
Measurements Intervals [place] Rate: 65 P: 53 WI: 163 QRS: 51 QRSD: 97 T: 67 QT: 432 QTc: 451 Interpretive Statements SINUS RHYTHM BASELINE ARTIFACT- I, AVL, V4-V5 NORMAL ECG Electronically Signed On 10-04-2020 20:13:41 PROGRAMMING DEVELOPMENT PROJECT MANAGER by Denzel Bowles D.O.
--- NOTE | 2020-10-04 16:38 | ED.GENADULT ---
HPI - General Adult General Chief complaint: Unspecified Stated complaint: rt leg pain / back pain Time Seen by Provider: 10/04/20 16:34 Source: patient Mode of arrival: ambulatory Limitations: altered mental status History of Present Illness HPI narrative: Patient is a 55-year-old female brought in due to altered mental status by EMS. According to EMS patient was hanging around [employer] aimlessly, acting erratic, so staff called 911. On EMS arrival patient was confused, slightly lethargic, and slurring her words. Patient was recently seen here this morning due to a fractured ankle. Per EMS patient is homeless. Patient denies any EtOH use or drug use. Patient denies any headache, dizziness, chest pain, shortness of breath, abdominal pain, nausea, vomiting, diarrhea, fever or chills. Based on medication patient takes Ativan, muscle relaxer, and pain medications. Related Data Home Medications Medication Instructions Recorded Confirmed albuterol sulfate INHALATION 05/06/20 amlodipine 05/06/20 gabapentin 05/06/20 hydroxyzine HCl 05/06/20 lisinopril 05/06/20 propranolol 05/06/20 tiotropium bromide [Spiriva with INHALATION 05/06/20 HandiHaler] trazodone 05/06/20 Allergies Allergy/AdvReac Type Severity Reaction Status Date / Time iohexol Allergy Severe Anaphylaxis Verified 05/31/20 16:00 [From contrast - CT, X-RAY] shellfish derived Allergy Severe Itching Verified 05/31/20 16:00 Review of Systems Review of Systems: All systems reviewed & are unremarkable except as noted in HPI and below Constitutional: Constitutional: Denies body ache(s), Denies chills, Denies excessive sweating, Denies fatigue, Denies fever(s), Denies headache(s) and Denies weight loss Eyes: Eyes: Denies blurry vision, Denies change in vision and Denies loss of vision ENT: Denies dizziness, Denies ear discharge, Denies headache(s), Denies lip swelling, Denies epistaxis, Denies nasal congestion, Denies neck pain, Denies throat swelling and Denies tongue swelling Cardiovascular: Cardiovascular: Denies chest pain, Denies chest pain at rest, Denies chest pain with activity, Denies diaphoresis, Denies rapid heart rate, Denies edema, Denies irregular heart rhythm, Denies lightheadedness, Denies palpitations, Denies dyspnea and Denies dyspnea on exertion Respiratory: Respiratory: Denies chest congestion, Denies cough, Denies hemoptysis, Denies dyspnea and Denies dyspnea on exertion Gastrointestinal: Gastrointestinal: Denies abdominal pain, Denies melena, Denies hematochezia, Denies diarrhea, Denies nausea, Denies vomiting and Denies hematemesis Musculoskeletal: Musculoskeletal: Denies abnormal gait, Denies deformity, Denies joint swelling, Denies limited range of motion, Denies neck pain and Denies numbness Neurologic: Denies Abnormal speech present, Denies abnormal gait, Denies dizziness, Denies headache(s), Denies focal weakness, Denies loss of vision, Denies numbness, Denies Other visual disturbances and Denies Sensory deficit (Neuro) Psychiatric: Psychiatric: Denies depression, Denies auditory hallucinations, Denies homicidal ideation and Denies suicidal ideation Endocrine: Endocrine: Denies cold intolerance, Denies excessive sweating, Denies fatigue, Denies heat intolerance and Denies palpitations Hematologic/Lymphatic: Hematologic/Lymphatic: Denies easy bleeding and Denies easy bruising Allergic/Immunologic: Allergic/Immunologic: Denies lip swelling, Denies throat swelling and Denies tongue swelling PMFSH Past Medical History Medical History (Updated 10/04/20 @ 19:51 by Glenn Jones MD) History of fibromyalgia History of gastroesophageal reflux (GERD) History of hypertension Social History Social History Smoking status: Current every day smoker Gender identity (if verbalized by the patient): Female Exam Const: General: comfortable and poor hygiene Orientat
[2020-10-04] MEDS: SODIUM CHLORIDE 0.9% IV 1,000 ML 999 ML IV CONT (16:47)
[2020-10-04 17:08] LABS: Basophils Percent Auto 0.5 % (0.2-1.2); Eosinophils Absolute Auto 0.2 K/mm3 (0-0.3); Eosinophils Percent Auto 2.9 % (0-4.4); Hematocrit 36.7 % (37.0-47.0); Hemoglobin 11.7 g/dL (12.0-15.0); Immature Granulocyte Absolute 0.02 K/mm3 (0.00-0.031); Immature Granulocyte Percent A 0.3 % (0-0.5); Lymphocytes Percent Auto 33.7 % (18.3-44.2); Mean Corpuscular HGB Conc 31.9 g/dl (32-36); Mean Corpuscular Hemoglobin 30.2 pg (26-34); Mean Corpuscular Volume 94.8 fl (80-100); Mean Platelet Volume 9.8 fl (7.4-10.4); Monocytes Absolute Auto 0.9 K/mm3 (0.1-0.6); Neutrophils Percent Auto 51.6 % (45.5-73.1); Platelet Count Result 195 k/mm3 (150-375); Red Blood Count 3.87 M/mm3 (4.2-5.4); Red Cell Distribution Width 13.2 % (11.5-14.5); White Blood Count 7.7 K/mm3 (4.5-10.0)
[2020-10-04 17:19] LABS: Lactic Acid Reflex 1.2 mmol/L (0.7-2.1)
[2020-10-04 17:20] LABS: Ethanol < 10 mg/dL (<10)
[2020-10-04 17:21] LABS: Alanine Aminotransferase 22 U/L (4-35); Albumin Level 3.6 g/dL (3.5-5.1); Alkaline Phosphatase 116 U/L (38-126); Anion Gap 5 mmol/L (8-16); Aspartate Amino Transferase 32 U/L (14-36); Bilirubin,Total 0.3 mg/dL (0.2-1.3); Blood Urea Nitrogen 20 mg/dL (7-17); Calcium 7.9 mg/dL (8.4-10.2); Carbon Dioxide 25 mmol/L (22-30); Chloride 109 mmol/L (98-107); Estimated CRCL calculation 47 ml/min; Estimated Glomerular Filt Rate 57; Glucose 118 mg/dL (65-105); Sodium 139 mmol/L (137-145)
[2020-10-04 17:32] LABS: Troponin I < 0.012 ng/mL (0.000-0.034)
[2020-10-04 19:00] LABS: Add Urine Microscopic? NO; Appearance Urine Clear (Clear); Bilirubin Urine Negative (Negative); Blood Urine Negative (Negative); Color Urine Yellow (Yellow); Glucose Urine UA Negative (Negative); Ketones Urine Negative (Negative); Leukocyte Esterase Ur Negative LEU/UL (Negative); Nitrate Urine Negative (Negative); Protein Urine Negative (Negative); Specific Grav Ur 1.013 (1.001-1.035); Urobilinogen Urine Negative mg/dL (<2.0)
[2020-10-04 19:36] LABS: Amphetamine Screen Urine Negative (Negative); Barbiturate Screen Urine Negative (Negative); Benzodiazepines Screen Urine Negative (Negative); Cannabinoid Screen Urine Negative (Negative); Cocaine Screen Urine Negative (Negative); Methadone Screen Urine Negative (Negative); Opiate Screen Urine Negative (Negative); Phencyclidine Screen Urine Negative (Negative)
--- NOTE | 2020-10-04 21:56 | ADMGEN ---
This patient, Adilia Calderon, was admitted to [facility] Surg Room 317-01 at 2125. Patient/family oriented to hospital policies and general routines including ID bracelet, bed and alarms, visiting hours, pain management, procedures, bathroom and other care routines, personal items, smoking policy, room service/diet, and visiting hours. Information on how to activate the Rapid Response Team has been discussed. Patient/Family are encouraged to report perceived risks to care and to ask questions if they do not understand what they are told or what they should do.
[2020-10-04] MEDS: LACTATED RINGERS 1,000 ML 125 ML IV CONT (23:27)
--- NOTE | 2020-10-05 05:13 | PM.IMHP ---
H&P: HPI History of Present Illness Date/Time: 10/05/20 05:13 Chief Complaint: Pain all over Narrative: Adilia Calderon is a 55 year old female with a past medical history of bipolar disorder, schizoaffective disorder, COPD and chronic pain syndrome who presented to the ER via EMS due to erratic behavior. The patient reports that her chief complaint is that she was hurting all over. [facility] had [facility] around and demonstrating erratic behavior. The patient reports that while she was at the restaurant she started the here her voices. She will not tell me what her voices were saying. She denies symptom lying her to hurt anyone. She denies suicidal homicidal ideation. She was last hospitalized for psychiatric illness 2 weeks ago at [place]. She is no longer hearing her hallucinations at this time. The patient was found to be confused and lethargic and was slurring her words. The patient has a history of chronic pain syndrome and as prescriptions for Neurontin, Skelaxin, interim fall, naproxen, Tylenol, ibuprofen, and a Triptan for migraines. The patient reported that she thought her Skelaxin was supposed to be 2 tablets every 6 hours as needed. She has been taking them in this manner. The prescription was prescribed on 09/29/2020. When EMS arrived at the business the patient's blood pressures were soft. She was given 1 L in fluid resuscitation in her blood pressures improved. The patient also is on Ativan, hydroxyzine, and Seroquel. She admits that she does not take her Seroquel as frequently as she should. She denies taking any extra lorazepam or hydroxyzine. However, the patient's lorazepam was filled on the with 90 tablets and she only has 12 tablets remaining. Interestingly enough the patient's urine drug screen is negative for opiates and benzodiazepines. She reports taking her Ativan on a regular basis she stated that her propranolol which was missing a few doses may be missing the doses because someone may have stolen them thinking that they were in a good drug use. She is currently homeless and was kicked out of the homeless long-term several days ago. She states that she will be allowed back into the home a long-term in 2 days. Patient was evaluated in our ER on the morning of the due to ankle pain nose found to have a lateral malleolar fracture and her ankle was splinted. On evaluation the patient has a markedly unsteady gait and almost fell when ambulating between the bed in the bathroom with nursing assistance. To follow-up with ortho as outpatient. The patient reports that she has chronic pain. She is post have a lumbar surgery performed by I physician in [place]. They will not do the surgery until she quit smoking. She is still smoking 10 cigarettes per day. She reports that she has cut down from 4 packs of cigarettes per day. She denies any illicit substance use or alcohol use. The patient does have a history of COPD and reports that he has developed increased shortness of breath and increased cough over the last few days. Her cough is productive of green sputum. She reports that her sputum is usually white to clear in color. She denies any fevers but reports having some chills. She denies any chest pain. She denies any lower extremity swelling. She does occasionally have some upper extremity swelling but her upper extremities are currently significantly more swollen than her baseline. She denies any orthopnea or paroxysmal nocturnal dyspnea. She thinks that she may have a touch of pneumonia. She has noticed increased wheezing over the last couple of days. The patient is a fair historian. She did not know the name of the hospital but otherwise was oriented. Review of Systems Review of Systems: Narrative: 12 systems were reviewed with pertinent positives and negatives per HPI. Except as documented in the HPI, all other systems were reviewed and are negative. PM
[2020-10-05 05:41] VITALS: BP 126/78; PULSE 78; RESP 20; TEMP 36.8; O2SAT 96
[2020-10-05 07:41] LABS: Hematocrit 36.7 % (37.0-47.0); Hemoglobin 11.8 g/dL (12.0-15.0); Mean Corpuscular HGB Conc 32.2 g/dl (32-36); Mean Corpuscular Hemoglobin 29.6 pg (26-34); Mean Platelet Volume 10.1 fl (7.4-10.4); Platelet Count Result 184 k/mm3 (150-375); Red Blood Count 3.99 M/mm3 (4.2-5.4); Red Cell Distribution Width 13.2 % (11.5-14.5); White Blood Count 5.4 K/mm3 (4.5-10.0)
[2020-10-05 08:01] LABS: Magnesium 1.6 mg/dL (1.6-2.3)
[2020-10-05 08:01] LABS: Anion Gap 3 mmol/L (8-16); Blood Urea Nitrogen 15 mg/dL (7-17); Calcium 8.4 mg/dL (8.4-10.2); Carbon Dioxide 24 mmol/L (22-30); Chloride 113 mmol/L (98-107); Estimated CRCL calculation 76 ml/min; Estimated Glomerular Filt Rate > 60; Glucose 107 mg/dL (65-105); Potassium 4.4 mmol/L (3.4-5.0); Sodium 140 mmol/L (137-145)
[2020-10-05] MEDS: ALBUTEROL SULFATE NEB 2.5 MG/0.5 ML INH 5 MG INHALATION (08:01)
[2020-10-05] MEDS: IPRATROPIUM BR 0.02% INH SOLN 0.5 MG/2.5 ML VIAL INHALATION (08:01)
[2020-10-05 08:02] VITALS: O2SAT 94
[2020-10-05 08:03] VITALS: PULSE 81; RESP 18
[2020-10-05 08:13] VITALS: PULSE 80; RESP 18
[2020-10-05 08:31] VITALS: PULSE 80
[2020-10-05] MEDS: PROPRANOLOL HCL 20 MG TABLET 60 MG PO (08:31)
[2020-10-05] MEDS: amLODIPine BESYLATE 5 MG TABLET 10 MG PO (08:31)
[2020-10-05] MEDS: lisinopriL 20 MG TABLET PO (08:31)
[2020-10-05] MEDS: predniSONE 20 MG TABLET 40 MG PO (08:31)
[2020-10-05] MEDS: PANTOPRAZOLE SOD SESQUIHYDRATE 20 MG TAB PO (08:32)
[2020-10-05] MEDS: GABAPENTIN 400 MG CAPSULE 800 MG PO (08:32)
[2020-10-05] MEDS: MONTELUKAST SODIUM 10 MG TABLET PO (08:33)
[2020-10-05] MEDS: traMADol HCL (*CRX) 50 MG TABLET PO (08:40)
[2020-10-05] MEDS: LORazepam (*CRX) 1 MG TABLET 2 MG PO ×2 (08:45→12:07)
[2020-10-05] MEDS: NAPROXEN 500 MG TABLET PO (11:23)
[2020-10-05] MEDS: FUROSEMIDE INJ 40 MG/4 ML VIAL IV PUSH (11:26)
--- NOTE | 2020-10-05 12:33 | PC.NURSE ---
PT has been begging to get out of bed.Has identified she knows person place and time. She says she wants to smoke. I offered a nicotine patch and she has refused it up to this point. The health consequences have been explained to her and she has stated a verbal understanding. Pt is able to express she is alert and orientated x3. Called Dr Mendoza and notified him of the patient's intentions to leave against medical advice. He said if she is alert and orientated x3 he said she can go if she understands the medical risks. Harman the private household worker was called to see if she may respond to him. Harman said she is still insisted on leaving. AMA paper was printed and she signed it, I signed as witness.Care coordination provided here with a list of [facility] locations.PT left with all her belongings.
--- NOTE | 2020-10-05 13:09 | PC.NURSE ---
Home medications and cigarettes were returned to patient.
--- NOTE | 2020-10-05 13:20 | PM.IMPN ---
Progress Note: A&P Assessment and Plan (1) Altered mental status: Qualifiers: Altered mental status type: unspecified Qualified Code(s): R41.82 - Altered mental status, unspecified Code(s): R41.82 - Altered mental status, unspecified Status: Acute Assessment and Plan: Could be due to overdose of Skelaxin. The patient's Skelaxin had been filled on September 29, 2020 with 30 tablets which are all missing from the bottle. The patient's urine drug screen was negative for opiates or benzodiazepines which had previously been ordered. The patient's bottle of lorazepam was also missing multiple doses of medications. Her lorazepam was filled on 09/26/2020 number 90 tablets since she only has 12 tablets left. Could also be due to her underlying psychiatric illness with bipolar disorder and schizoaffective disorder. On much less suspicious for acute infectious process leading to the patient's mental status changes. 10/05/20 13:20 patient is a 55-year-old female with history of psychiatry illness and chronic pain apparently patient was confused and acting erratically outside [facility], restaurant staff called EMS and patient was brought to the emergency department for further evaluation apparently patient is a very poor historian, with dementia and confusion was not able to provide appropriate history or review of systems, patient has been prescribed opioid and benzodiazepine however her urine drug tox was negative for both drugs, apparently patient is taking more than prescribed dose of Skelaxin and suspect patient may have toxicity, patient appears to be chronic smoker and suspect patient may have COPD however chest x-ray showed subsegmental atelectasis versus pneumonia patient being treated with doxycycline and updraft will continue to monitor have PT OT evaluate the patient and further recommendation to follow (2) Acute hypotension: Code(s): I95.9 - Hypotension, unspecified Status: Acute Assessment and Plan: I suspect the patient may have taken too much of her antihypertensive medications in her confusional state. Or she could have been volume depleted. I have personally counted the patient's antihypertensives. She had a bout 5 missing pills of propranolol. Patient's blood pressures have stabilized. Will resume home antihypertensives and monitor. The patient's hypotension has resolved after IV fluid hydration. (3) Lateral malleolar fracture: Code(s): S82.63XA - Displaced fracture of lateral malleolus of unspecified fibula, initial encounter for closed fracture Status: Acute Assessment and Plan: Tylenol and naproxen and tramadol ordered for pain depending on pain scale. The patient has been referred to pain management multiple times but she states that she cannot find a pain management doctor that will see her. She reports that she used to take oxycodone when she lived in [place]. (4) COPD exacerbation: Code(s): J44.1 - Chronic obstructive pulmonary disease with (acute) exacerbation Status: Acute Assessment and Plan: Will initiate steroid therapy with prednisone 40 mg daily and schedule albuterol and Atrovent q.6 hours. Two-view chest x-ray has been ordered. (5) Gait instability: Code(s): R26.81 - Unsteadiness on feet Status: Acute Assessment and Plan: PT and OT evaluation. Fall precautions. (6) Homeless single person: Code(s): Z59.0 - Homelessness Status: Acute Assessment and Plan: The patient is homeless and has been kicked of the correction recently. Will request care coordination consult. Subjective Date/time seen: 10/05/20 13:20 patient is a 55-year-old female with history of psychiatry illness and chronic pain apparently patient was confused and acting erratically outside [facility], restaurant staff called EMS and patient was brought to the emergency department for [facility], [id number]
--- NOTE | 2020-10-05 16:35 | PM.DS ---
DS: Admitting Diagnosis Admitting Diagnosis Admitting Diagnosis: Chief Complaint: Pain all over DS: Discharge Diagnosis Discharge Diagnosis (1) Altered mental status: Qualifiers: Altered mental status type: unspecified Qualified Code(s): R41.82 - Altered mental status, unspecified Code(s): R41.82 - Altered mental status, unspecified Status: Acute Assessment and Plan: Could be due to overdose of Skelaxin. The patient's Skelaxin had been filled on September 29, 2020 with 30 tablets which are all missing from the bottle. The patient's urine drug screen was negative for opiates or benzodiazepines which had previously been ordered. The patient's bottle of lorazepam was also missing multiple doses of medications. Her lorazepam was filled on 09/26/2020 number 90 tablets since she only has 12 tablets left. Could also be due to her underlying psychiatric illness with bipolar disorder and schizoaffective disorder. On much less suspicious for acute infectious process leading to the patient's mental status changes. 10/05/20 13:20 patient is a 55-year-old female with history of psychiatry illness and chronic pain apparently patient was confused and acting erratically outside [facility], restaurant staff called EMS and patient was brought to the emergency department for further evaluation apparently patient is a very poor historian, with dementia and confusion was not able to provide appropriate history or review of systems, patient has been prescribed opioid and benzodiazepine however her urine drug tox was negative for both drugs, apparently patient is taking more than prescribed dose of Skelaxin and suspect patient may have toxicity, patient appears to be chronic smoker and suspect patient may have COPD however chest x-ray showed subsegmental atelectasis versus pneumonia patient being treated with doxycycline and updraft will continue to monitor have PT OT evaluate the patient and further recommendation to follow (2) Acute hypotension: Code(s): I95.9 - Hypotension, unspecified Status: Acute Assessment and Plan: I suspect the patient may have taken too much of her antihypertensive medications in her confusional state. Or she could have been volume depleted. I have personally counted the patient's antihypertensives. She had a bout 5 missing pills of propranolol. Patient's blood pressures have stabilized. Will resume home antihypertensives and monitor. The patient's hypotension has resolved after IV fluid hydration. (3) Lateral malleolar fracture: Code(s): S82.63XA - Displaced fracture of lateral malleolus of unspecified fibula, initial encounter for closed fracture Status: Acute Assessment and Plan: Tylenol and naproxen and tramadol ordered for pain depending on pain scale. The patient has been referred to pain management multiple times but she states that she cannot find a pain management doctor that will see her. She reports that she used to take oxycodone when she lived in [place]. (4) COPD exacerbation: Code(s): J44.1 - Chronic obstructive pulmonary disease with (acute) exacerbation Status: Acute Assessment and Plan: Will initiate steroid therapy with prednisone 40 mg daily and schedule albuterol and Atrovent q.6 hours. Two-view chest x-ray has been ordered. (5) Gait instability: Code(s): R26.81 - Unsteadiness on feet Status: Acute Assessment and Plan: PT and OT evaluation. Fall precautions. (6) Homeless single person: Code(s): Z59.0 - Homelessness Status: Acute Assessment and Plan: The patient is homeless and has been [facility] of the [facility] recently. Will request care coordination consult. DS: Summary Hospital Course Reason for hospitalization: Chief Complaint: Pain all over Narrative: Adilia Calderon is a 55 year old female with a past medical history of bipolar disorder, schizo
== END 2020-10-05 13:13 | disposition left against medical advice (07) ==
LOC: ANHED 20:25 → ANH3MEDSUR 20:40
PROVIDERS: Family Medicine; Admitting Provider Internal Medicine; Emergency Provider Emergency Medicine; PCP Family Medicine; Visit Provider Internal Medicine
DX: R41.82 Altered mental status, unspecified (principal); J44.1 Chronic obstructive pulmonary disease with (acute) exacerbation; S82.63XD Displaced fracture of lateral malleolus of unspecified fibula, subsequent encounter for closed fracture with routine healing; R26.81 Unsteadiness on feet; F17.210 Nicotine dependence, cigarettes, uncomplicated; I95.9 Hypotension, unspecified; G89.4 Chronic pain syndrome; R06.02 Shortness of breath; F31.9 Bipolar disorder, unspecified; F25.9 Schizoaffective disorder, unspecified; Z59.0 Homelessness
CPT/HCPCS: 29515; 36415; 51701; 70450; 71046; 73610; 80048; 80053; 80307; 81003; 83605; 83735; 84484; 85025; 85027; 93005; 94640; 96361; 96365; 96375; 99285; A9270; G0378; J1940; J7030; J7120; J7512

== ENCOUNTER 2020-10-05 14:20 | Emergency (ER) | payer MEDICARE, MEDICAID, SELFPAY ==
[2020-10-05 14:23] VITALS: BP 120/67; PULSE 86; RESP 20; TEMP 36.3; O2SAT 97
--- NOTE | 2020-10-05 14:35 | PC.NURSE ---
Per packing tractor machine operator Kelly and Dr Maxwell, pt signed out AMA and they wish to discuss plan w/ hospitalist Sofía. Waiting to hear back prior to deciding course of action, this RN was told to have pt wait in w/c in waiting room.
--- NOTE | 2020-10-05 14:40 | PC.NURSE ---
Patient has cigarette in hand and sample taker operator, advised patient this is a non smoking facility. Patient did give sample taker operator to this nurse at this time.
--- NOTE | 2020-10-05 14:41 | PC.NURSE ---
Pt instructed not to get out of w/c without help. Tejal OLMSTEAD assisting pt to restroom at this time.
--- NOTE | 2020-10-05 14:53 | PC.NURSE ---
Patient was seen placing another box turner in bra at this time in waiting room. Advised once again we are a non smoking facility. Patient states I would never light a cigarette up in a hospital, I have more respect than that. Radiotelegraph Operator was handed over to this nurse at this time.
--- NOTE | 2020-10-05 15:24 | PC.NURSE ---
Pt taken to room 15 via w/c. Pt belongings in room. EDP and charge poster aware.
--- NOTE | 2020-10-05 15:32 | ED.GENADULT ---
HPI - General Adult General Chief complaint: Psychiatric Symptoms Stated complaint: pneumonia Time Seen by Provider: 10/05/20 15:24 Source: patient Mode of arrival: ambulatory Limitations: no limitations History of Present Illness HPI narrative: Patient is a 55-year-old female who was admitted yesterday due to altered mental status secondary to polypharmacy. I saw and evaluated the patient yesterday and admitted her. Patient is back in the emergency room after being discharged due to she does not have a place to stay. Patient is homeless. Denies any suicidal homicidal ideation. Denies auditory or visual hallucinations. Related Data Home Medications Medication Instructions Recorded Confirmed albuterol sulfate 2 puff INHALATION Q6H 05/06/20 10/04/20 amlodipine 10 mg PO DAILY 05/06/20 10/04/20 gabapentin 800 mg TID 05/06/20 10/04/20 hydroxyzine HCl 50 mg PO Q6H PRN 05/06/20 10/04/20 lisinopril 20 mg PO DAILY 05/06/20 10/04/20 propranolol 60 mg PO TID 05/06/20 10/04/20 tiotropium bromide [Spiriva with 18 mcg INHALATION DAILY 05/06/20 10/04/20 HandiHaler] escitalopram oxalate 10 mg PO HS 10/04/20 10/04/20 lorazepam 2 mg PO TID PRN 10/04/20 10/04/20 montelukast 10 mg PO DAILY 10/04/20 10/04/20 naproxen 500 mg PO BID PRN 10/04/20 10/04/20 omeprazole magnesium [Acid Canine Deputy 20 mg PO DAILY 10/04/20 10/04/20 (omeprazole)] quetiapine 100 mg PO BID 10/04/20 10/05/20 zolmitriptan 5 mg PO DAILY PRN 10/04/20 10/04/20 hydrocodone-acetaminophen 1 tablet PO Q6H PRN 10/05/20 10/05/20 methocarbamol [Robaxin-750] 750 mg PO QID PRN 10/05/20 10/04/20 quetiapine 200 mg PO HS 10/05/20 10/05/20 Allergies Allergy/AdvReac Type Severity Reaction Status Date / Time iohexol Allergy Severe Anaphylaxis Verified 05/31/20 16:00 [From contrast - CT, X-RAY] shellfish derived Allergy Severe Itching Verified 05/31/20 16:00 Review of Systems Review of Systems: All systems reviewed & are unremarkable except as noted in HPI and below Constitutional: Constitutional: Denies body ache(s), Denies chills, Denies excessive sweating, Denies fatigue, Denies fever(s), Denies headache(s), Denies lethargy, Denies malaise, Denies weakness and Denies weight loss Eyes: Eyes: Denies blurry vision, Denies change in vision and Denies loss of vision ENT: Denies dizziness, Denies ear discharge, Denies headache(s), Denies lip swelling, Denies epistaxis, Denies nasal congestion, Denies neck pain, Denies throat swelling and Denies tongue swelling Cardiovascular: Cardiovascular: Denies chest pain, Denies chest pain at rest, Denies chest pain with activity, Denies diaphoresis, Denies rapid heart rate, Denies edema, Denies irregular heart rhythm, Denies lightheadedness, Denies palpitations, Denies dyspnea and Denies dyspnea on exertion Respiratory: Respiratory: Denies chest congestion, Denies cough, Denies hemoptysis, Denies dyspnea and Denies dyspnea on exertion Gastrointestinal: Gastrointestinal: Denies abdominal pain, Denies melena, Denies hematochezia, Denies diarrhea, Denies nausea, Denies vomiting and Denies hematemesis Musculoskeletal: Musculoskeletal: Denies abnormal gait, Denies deformity, Denies joint swelling, Denies limited range of motion, Denies neck pain and Denies numbness Neurologic: Denies Abnormal speech present, Denies abnormal gait, Denies confusion, Denies dizziness, Denies headache(s), Denies focal weakness, Denies loss of vision, Denies numbness, Denies Other visual disturbances, Denies Sensory deficit (Neuro) and Denies weakness Psychiatric: Psychiatric: Denies confusion, Denies depression, Denies auditory hallucinations, Denies homicidal ideation and Denies suicidal ideation Endocrine: Endocrine: Denies cold intolerance, Denies excessive sweating, Denies fatigue, Denies heat intolerance and Denies palpitations Hematologic/Lymphatic: Hematologic/Lymphatic: Denies easy bleeding and Denies easy bruising Allergic/Immunologic: Allergic/Immunologic: Denies l
--- NOTE | 2020-10-05 15:35 | PC.NURSE ---
pt in room dry smoking cigarette. when asked why she came back to the ed states that she wanted to make sure she was right in the head. dr. mendoza spoke with pt. pt admits that she cant get back into the homeless [facility] until tuesday.
--- NOTE | 2020-10-05 16:19 | PC.NURSE ---
[employer] here at this time, [facility] at this time.
== END 2020-10-05 16:01 | disposition home or self-care (01) ==
LOC: ANHED 16:38
PROVIDERS: Emergency Provider Emergency Medicine; PCP Family Medicine
DX: Z59.0 Homelessness (principal); F31.9 Bipolar disorder, unspecified; J44.9 Chronic obstructive pulmonary disease, unspecified; I10 Essential (primary) hypertension; M79.7 Fibromyalgia; K21.9 Gastro-esophageal reflux disease without esophagitis; F25.9 Schizoaffective disorder, unspecified; F17.210 Nicotine dependence, cigarettes, uncomplicated
CPT/HCPCS: 99281